=== PATIENT | male | born 1985 | race Caucasian/White ===

== ENCOUNTER 2016-05-31 22:33 | Emergency (ER) | payer BC, MEDICAID ==
[~2016-05-31] VITALS: Ht 182.9 cm; Wt 126.5 kg
[2016-05-31] MEDS ORDERED: PROVENTIL HFA6.7 GM INH (22:57)
[2016-05-31] MEDS ORDERED: PROVENTIL2.5 MG/3 M INH (22:58)
== END 2016-05-31 23:42 | disposition short-term general hospital (02) ==
LOC: ER 22:33
DX: R07.81 Pleurodynia (principal); J45.909 Unspecified asthma, uncomplicated; E11.9 Type 2 diabetes mellitus without complications; F17.210 Nicotine dependence, cigarettes, uncomplicated; Z79.899 Other long term (current) drug therapy
CPT/HCPCS: J1885

== ENCOUNTER 2016-09-14 13:35 | Emergency (ER) | payer MEDICAID ==
[~2016-09-14] VITALS: Ht 182.9 cm; Wt 127.0 kg
[~2016-09-14 13:35] MED LIST: PROVENTIL HFA6.7 GM INH; PROVENTIL2.5 MG/3 M INH
== END 2016-09-14 14:30 | disposition short-term general hospital (02) ==
LOC: ER 13:35
DX: L55.9 Sunburn, unspecified (principal); R11.0 Nausea; R19.7 Diarrhea, unspecified; J45.21 Mild intermittent asthma with (acute) exacerbation
CPT/HCPCS: J1885; J2550